=== PATIENT | female | born 1945 | race Caucasian/White ===

== ENCOUNTER → 2021-08-23 | Outpatient (CLI) | payer MEDICARE ==
[~2021-08-23] MED LIST: ANTIVERT 25MG25 MG PO; ARIMIDEX1 MG PO; CALCIUM CITRAT200 MG PO; CENTRUM SILVER1 CTB PO; CIPRO 100MG TA100 MG PO; DILAUDID 2MG TAB2 MG PO; EPA/GLA1 SGL PO; HCTZ 25MG TAB25 MG PO; LASIX 20MG TABL20 MG PO; MAG-OX 400400 MG/TAB PO; PRAVACHOL 20MG20 MG PO; PRINIVIL40 MG PO; TOPROL XL100 MG PO; TYLENOL 325MG325 MG PO
== END ==
LOC: COL.RAD 08:57
DX: C50.411 Malignant neoplasm of upper-outer quadrant of right female breast (principal); C79.51 Secondary malignant neoplasm of bone
CPT/HCPCS: A9503

== ENCOUNTER → 2024-02-01 | Outpatient (CLI) | payer MEDICARE | LOC: COL.VAS 08:46 | DX: C50.819 Malignant neoplasm of overlapping sites of unspecified female breast (principal); I51.7 Cardiomegaly; I34.0 Nonrheumatic mitral (valve) insufficiency; I34.81 Nonrheumatic mitral (valve) annulus calcification ==